=== PATIENT | male | born 1990 | race Two or more races ===

== ENCOUNTER 2022-07-05 22:03 | Emergency (ER) | payer SELFPAY ==
[~2022-07-05] VITALS: Ht 172.7 cm; Wt 79.5 kg
[2022-07-05 22:20] VITALS: BP 124/76
[2022-07-05] MEDS ORDERED: FLUORESCEIN SODIUM 1 MG STRIP OD ONE (22:45)
[2022-07-05] MEDS ORDERED: PROPARACAINE HCL 0.5% 15 ML OPHTHALMIC SOLUTION OD ONE (22:45)
== END 2022-07-05 23:00 | disposition left against medical advice (07) ==
LOC: EMS 22:12
DX: R51.9 Headache, unspecified (principal); F17.210 Nicotine dependence, cigarettes, uncomplicated; F12.90 Cannabis use, unspecified, uncomplicated; Y09 Assault by unspecified means
CPT/HCPCS: 99281; J9035; Z7502; Z7610

== ENCOUNTER 2024-12-06 18:56 | Emergency (ER) | payer MEDICAID ==
[~2024-12-06] VITALS: Ht 172.7 cm; Wt 84.5 kg
[2024-12-06 18:59] VITALS: TEMP 98.2
[2024-12-06] MEDS: PERTUSS(ACELL),DIPH,TET/PF 0.5 ML SYRINGE [ADULT] IM. ONE (20:29)
[2024-12-06] MEDS: LIDOCAINE 1% 10 ML VIAL SQ ONE (22:34)
[2024-12-07 00:01] VITALS: BP 118/68; PULSE 79; RESP 18; O2SAT 99
== END 2024-12-07 00:01 | disposition left against medical advice (07) ==
LOC: EMS 18:56
DX: S61.432A Puncture wound without foreign body of left hand, initial encounter (principal); Z53.21 Procedure and treatment not carried out due to patient leaving prior to being seen by health care provider; X58.XXXA Exposure to other specified factors, initial encounter; Y93.89 Activity, other specified; Y92.89 Other specified places as the place of occurrence of the external cause; Y99.8 Other external cause status
CPT/HCPCS: 73130; 90715; J0690; J3490; 90471; 96372; 99284